=== PATIENT | female | born 1995 | race Caucasian/White ===

== ENCOUNTER 2023-07-19 14:59 | Emergency (ER) | payer MEDICAID ==
[~2023-07-19] VITALS: Ht 160 cm; Wt 91.6 kg
[~2023-07-19 14:59] MED LIST: CLIN-142 PO; LISD10CA PO; SPIR100T PO; TRAM50TA2 PO
[2023-07-19 15:00] VITALS: BP_SYST 161; PULSE 102; RESP 18; TEMP 98.7; O2SAT 98
[2023-07-19] MEDS ORDERED: DOXY100C5 PO (15:44)
[2023-07-19] MEDS: LIDOCAINE 1% 10 MG/ML, 20 ML MDV INJ ONE (16:02)
[2023-07-19 16:03] VITALS: BP_SYST 124; PULSE 96; RESP 20; TEMP 98.7; O2SAT 98
== END 2023-07-19 15:55 | disposition home or self-care (01) ==
LOC: SED 14:59
DX: K61.0 Anal abscess (principal); Z88.1 Allergy status to other antibiotic agents; Z79.899 Other long term (current) drug therapy
CPT/HCPCS: 99284